=== PATIENT | male | born 1955 | race Caucasian/White ===

== ENCOUNTER 2022-11-13 19:53 | Outpatient (OUT) | payer MEDICARE, OTHER, SELFPAY | END 2022-11-13 19:54 | PROVIDERS: PCP Internal Medicine; Visit Provider Internal Medicine | DX: G47.33 Obstructive sleep apnea (adult) (pediatric) (principal) | CPT/HCPCS: 95811 ==

== ENCOUNTER 2025-04-28 11:12 | Outpatient (OUT) | payer MEDICARE, OTHER, SELFPAY ==
--- OUTSIDE RECORDS SUMMARY | 2025-04-28 06:15 | XMS_ITS | Continuity of Care Document ---
Author Organization [facility] Address [address] [place] [address] Phone Care Team Providers Care Senior Research Scientist Name Role Phone Patel Fabian DO Primary Care Provider Patel Fabian DO Attending Provider [phone] Care Teams Patient Care Team Team Status: Active Member Role/Relationship Status Dates Patel Fabian DO Primary Care Provider Active Patient Care Team Team Status: Inactive Member Role/Relationship Status Dates Patel Fabian DO Primary Care Provider Active Start: April 28, 2025 End: April 28enjaraoul Fabian DOAttending ProviderActiveStart: April 28, 2025 End: April 28, 2025 Chief Complaint and Reason for Visit Chief Complaint Admit Date Wellness April 28, 2025 1 0:16am Reason for Visit Admit Date Cough April 28, 2025 1 0:16am Hypercholesteremia April 28, 2025 1 0:16am IFG (impaired fasting glucose) April 28, 2025 10:16am Major depression April 28, 2025 1 0:16am Medicare annual wellness visit, subseque nt April 28, 2025 10:16am Screening PSA (prostate specific antigen ) April 28, 2025 10:16am Screening for colon cancer April 28, 2025 10:16am Allergies, Adverse Reactions, Alerts Allergen Type Severity Reaction Last Updated Verified Status No Known Allergies Allergy Unknown April 28, 2025 10:17amYesActive Social History Smoking Status Status Start Date End Date Date of Observa tion Ex-smoker (finding) December 07, 2022 7:22am Observation Status Observation Response Date of Response Legal Sex [facility] (finding) [facility] 1954 Family History Relationship Condition Age at Onset Recorded Date/T analia father Diabetes mellitus Unknown Disorder of kidneyUnknownHypertensionUnknownAlzheimer's diseaseUnknownmother Current smokerUnknownChronic obstructive pulmonary diseaseUnknownbrotherDiabetes mellitusUnknownsisterMalignant neoplasm of brainUnknownfatherDiabetes mellitus Unknown Problems Active Problems Problem Diagnosis/Recorded Date Onset Date Status C manasa Carpal tunnel syndrome of ri ght wrist December 07, 2022 7:38am Unknown Active Medicare annual wellness visit, subsequentApril 06, 2024 3:45pmUnknown ActiveMajor depressionApril 06, 2024 3:46pmUnknownActiveScreening PSA (prostate specific antigen)April 06, 2024 3:46pmUnknownActivePSA: 1.91 - 04/2023, 2.02 - oughDecember 2024 10:56amUnknownActive HypercholesteremiaJune 2022 8:55amUnknownActiveIFG (impaired fasting glucose)April 28, 2025 11:00amUnknownActive Medications Medication Status Dose Units Route Directions Qty Days Refills S tart Date Stop Date End Date Reason(s) Instructions Adherence Sertraline 100 mg tablet Discontinued 0 .ROUTE.BGEEOXJ6449Cmnvy 2023 3:01pmOctober 2023 6:04amTAKE 1 1/2 TABLETS BY MOUTH ONCE A DAYSertraline 100 mg tabletDiscontinued0.ROUTE.COMPLEX 1350October 2023 6:04amJanuary 2024 7:41amTAKE 1 1/2 TABLETS BY MOUTH ONCE A DAYSertraline 100 mg tabletActive0.ROUTE.AASNQLB4025Muftlnd 2024 7:41amTAKE 1 1/2 TABLETS BY MOUTH ONCE A DAYComplies with drug therapy Ibuprofen 200 mg VadamjQpbvgcihekuz944SYBIB2C as needed for PainJune 2022 11:00pmApril 09, 2024 9:46amGabapentin 300 mg kzvchzrEofmaizjfozz133TDWA Three times dailyJune 2022 11:00pmApril 09, 2024 9:46amTramadol 50 mg susrkbIxrhjywgrggy39TAQDY5V as needed for gnpn72086Tyez 2022 11:00pm April 09, 2024 9:46amCarpal tunnel syndrome of right wrist Carpal tunnel syndrome, right upper limbSertraline 100 mg ofahhjFjlblsuqzlpm724 MGPODailyApril 2023 11:00pmApril 2023 3:02pm1 1/2 Orally Once a day Doxycycline Hyclate 100 mg yczjfzmBozqnf727KLBSAavnv zruiu3279Zfkmzpmw 2024 12:00amComplies with drug therapy Immunizations Immunization Event Date Not Given Reason Dose Number Software Project Engineer Lot Number Reason(s) Given Vaccine Information Statement (VIS) Detail Administration Location COVID-19 mRNA-1273 (Moderna) July 30, 2020 COVID-19 mRNA-1273 (Moderna)August 27OVID-19 mRNA-1273 (Moderna)April 11OVID-19 mRNA Bivalent Booster (Moderna)March 24, 2022influenza, unspecified formulationOctober 2016influenza, unspecified formulation March 13, 2018influenza, unspecified formulationOctober 2018influenza, unspecified formulationOctober 2019influenza, unspecified formulation February 23, 2022influenza, unspecified formulationSeptember 2022 Pneumococcal Conjugate Vaccine, 20 valentSeptember 2021Tetanus, Diphtheria adult, 5 Lf pres free absOctober 2014 Vital Signs Vital Reading Result Reference Range Collection Date/Time Height 71 [in_i] April 28, 2025 10:72arXyfloj64.16 kgDece2024 10:21amHeart Rate64 /ohr39-432Yqhjrhcg 2nd, 2025 10:21amRespiratory rate12 /gkg33-55Ktwyfuzb 2nd, 2025 10:21amBP Akjzzjpu481 mm[Hg]100-140Decemb2024 10:21amBP Sqijevdub30 mm[Hg]60-100December 2024 10:21amBMI (Body Mass Index)29.5 kg/q3Hhcxvfik2024 10:21am Advance Directives Advance Directive Response Recorded Date/ Time Advance Directives No It[place] 5th, 201 8 2:29pm Insurance Providers Guarantor Anusha Caban JR Address [address] [facility] [address]Gtxsmrn Info.Home Phone: Payer Group Member ID Coverage Type Subscriber Relationship to Subscriber Effective Date Expiration Date MMO Retired Id: [id number] Leber , P JR Id: [id number] [facility] [address] Home Phone: [phone]-NMJA Employees [id number] Leber , P JR Id: [id number] [facility] [address] Home Phone: SelfParaFrank [facility]. [facility] Retired Id: [id number] Leber , P JR Id: [id number] [address] [facility] [address] Home Phone: Seledicare [id number] Leber , P JR Id: [id number] [facility] [address] Home Phone: [facility] [address] [place] [address] Work Phone: Id: [id number] Leber , P JR Id: [id number] [address] [facility] [address] Home Phone: SelfApril 2011 Encounters Encounter Location(s) Arrival/Admit Date Discharge/Departure Date Discharge/Departure Disposition Provider(s) Departed Physician/ Provider Office Visit -[facility] April 28, 2025 10:16am April 28, 2025 11:07am Discharged to home care or self care (routine discharge) Patel Fabian DO Recent Diagnosis Onset Date Admit Date Cough Unknown April 28 10:16am Hypercholesteremia Unknown April 28, 2025 10:16am IFG (impaired fasting glucose) Unknown D ecember 2024 10:16am Major depression Unknown April 28, 025 10:16am Medicare annual wellness visit, subsequent Unkno wn April 28, 2025 10:16am Screening PSA (prostate specific antigen) Unknow n April 28, 2025 10:16am Screening for colon cancer Unknown Decem shagufta 2024 10:16am Assessments Diagnosis Onset Date Resolution Status Admit Date Cough acuteDe2024 10:16amHypercholesteremiaacuteDece2024 10:16am IFG (impaired fasting glucose)acuteApril 28, 2025 10:16amMajor depression acuteDe2024 10:16amMedicare annual wellness visit, subsequentacute April 28, 2025 10:16amScreening PSA (prostate specific antigen)acuteApril 28, 2025 10:16amScreening for colon cancernoneactiveDece2024 10:16am Plan of Treatment Author Patel Fabian [facility], BeachwoodAuthoredFormerly [facility], [facility]2024 11:01amI have instructed this patient on the recommended lifestyle changes, which includes a low fat, high fiber diet along with a regular exercise routine. I have also reviewed the recommended age-appropriate preventive testing for this patient. I have also reviewed the recommended vaccines for their age and risk factors. Instructed on a healthy diet and exercise routine. Instructed to continue medical treatment w/o interruption. Instructed to avoid abrupt d/c of medication due to w/d symptoms. I have recommended yearly PSA testing. I have informed him that the PSA can be elevated w/ cancer, infection and enlarged prostates. I have explained to the patient, that If his PSA is elevated, while there are many causes, referral will be recommended to r/o cancer. He would be referred to Urology, who may recommend an MRI, TRUS/bx or possibly continued monitoring. He is agreeable to this plan of action PSA: 1.91 - 04/2023, 2.02 - 03/2024, 1.99 - 04/2025 This is an asymptomatic, low risk patient, who is due for a screening colonoscopy. There has been no change in appetite, weight or bowel habits. There is no history of abdominal pain, heartburn, dysphagia, melena or hematochezia. Last colonoscopy 01/01/2016 Began 4 wks ago w/o preceding URI. He denies allergy symptoms, heartburn, reflux, CP, SOB, palpitations or lightheadedness He tested negative for COVID Recently developed productive cough w/ green sputum Order CXR Rx Doxycycine and Mucinex DM His A1C is between 5.7-6.5%. Instructed on low carb, high fiber diet. Instructed on routine exercise program for 30-60min three times weekly. Instructed on correlation between obesity and insulin resistance and encouraged to lose weight. Monitor A1C every 6 months. Check A1C I have instructed this patient on a low fat, high fiber diet and exercise. I have discussed the primary and secondary prevention benefits attributed to lowering LDL cholesterol. I have also discussed the medical treatment of elevated cholesterol, which is based on the 10 year ASCVD risk. Future Tests Future scheduled test information is unavailable Pending Tests Test Name Ordered Date Scheduled Date XR chest 2V* April 28, 2025 10:55am Future Visits Future appointment information is unavailable Future Procedures Future procedure information is unavailable Future Medications Future medication information is unavailable Patient Instructions Patient instructions are unavailable
--- OUTSIDE RECORDS SUMMARY | 2025-04-28 11:19 | XMS_ITS | Clinical Summary ---
Author Organization [facility] Address [address] [place] [address] Care Team Providers Care Launch Manager Name Role Phone Patel Fabian DO Primary Care Provider [phone] Allergies No known active allergies Medications MedicationSigDispense QuantityRefillsLast FilledStart DateEnd DateStatus sertraline (Zoloft) 100 MG tablet TAKE 1 TABLET BY MOUTH EVERY DAY FOR 90 DAYS01/08/2023ctive Active Problems ProblemNoted DateDiagnosed DatePeroneal tendinitis, right leg3Pain in right ankle and joints of right foot04/02/2023asal cell carcinoma (BCC) of skin of nose11/14/2022rimary osteoarthritis of right ankle11/14/2022Sciatica 11/14/2022 Immunizations ImmunizationAdministration DatesNext DuePneumococcal Conjugate PCV Family History Medical HistoryRelationNameCommentsDiabetesBrotherDiabetesFatherCancerMother CancerOtherSpouseHeart diseasePaternal GrandfatherHeart diseasePaternal GrandmotherRelationNameStatusCommentsBrotherFatherDeceasedMotherOtherSpouse DeceasedPaternal GrandfatherDeceasedPaternal Grandmother Social History Tobacco UseTypesPacks/DayYears UsedDateSmoking Tobacco: NeverSmokeless Tobacco: Never Tobacco Cessation:Counseling Given: Not Answered Alcohol UseStandard Drinks/WeekCommentsYes6 (1 standard drink = 0.6 oz pure alcohol)caffeine: 1-2 cups per day coffeeSex and Gender InformationValueDate RecordedSex Assigned at BirthNot on fileLegal MkwRjpx06/ 6:47 PM EDT Gender IdentityNot on fileSexual OrientationNot on file Last Filed Vital Signs Vital SignReadingTime TakenCommentsBlood Gysgwtab765/8210 12:41 PM EDT Ytdfl177703/04/2024 12:41 PM EDTTemperature--Respiratory Lujl761606/02/2022 4:29 PM ESTOxygen Zrhbfgrhrq57%03/04/2024 12:41 PM EDTInhaled Oxygen Concentration-- Bmepxj96.9 kg (218 lb)03/04/2024 12:41 PM ZTOKatzbg133.8 cm (5' 10 )03/04/2024 12:41 PM EDTBody Mass Index31.281 12:41 PM EDT Plan of Treatment Not on file Insurance * Guarantor: Sony Husseincomurali TypeRelation to PatientDate of BirthPhone Billing AddressPersonal/XknxbqBpwv1955 [id number] [address] Care Teams Team MemberRelationshipSpecialtyStart DateEnd Date Patel Fabian DO PCP - GeneralInternal Medicine11/14/22
--- OUTSIDE RECORDS SUMMARY | 2025-04-28 11:19 | XMS_ITS | Clinical Summary ---
Author Organization [facility] Address [address] [place] [address] Phone Care Team Providers Care Powder Mixer Name Role Phone Patel Fabian DO Primary Care Provider [phone] Social History Tobacco UseTypesPacks/DayYears UsedDateSmoking Tobacco: Never AssessedSex and Gender InformationValueDate RecordedSex Assigned at BirthNot on fileLegal Sex Male04/22/2022 9:14 PM ESTGender IdentityNot on fileSexual OrientationNot on file Last Filed Vital Signs Vital SignReadingTime TakenCommentsBlood Ogmbnoii006/85005/31/2022 11:19 AM EST Obpia815905/31/2022 11:19 AM YMUWkfoaodpyoy76 ??C (96.8 ??F)05/31/2022 11:19 AM ESTRespiratory Rwnf211705/31/2022 11:19 AM ESTOxygen Xmtldbbpct36%05/31/2022 11:19 AM ESTInhaled Oxygen Concentration--Smkibf18.6 kg (204 lb 2.3 oz)05/31/2022 11:19 AM FFXZdfuwu573 cm (5' 9.69 )05/31/2022 11:19 AM ESTBody Mass Index29.55 05/31/2022 11:19 AM EST Plan of Treatment Health MaintenanceDue DateLast DoneCommentsCT Viinqfiixhhy1957Colonoscopy 1955Colorectal Cancer Nrkncipqv1957FIT-DNA (Cologuard)1957FIT 1955Lipid Panel1955 3844Qtoalxfvvhldz1957Yearly Adult Physical 1957MMR Vaccines (1 of 1 - Standard series)1958Diabetes Screening 1975Hepatitis C Bfyymcojl91/23/1975DTaP/Tdap/Td Vaccines (1 - Tdap) 1979PSA Prostate Cancer Fxxhshned52/23/2007Pneumococcal Vaccine (1 of 1 - PCV)2007Zoster Vaccines (1 of 2)2007Influenza Vaccine (#1)2024 COVID-19 Vaccine (1 - 2024- season)2025RSV High Risk: (Elderly (60+) or Population) (1 - 1-dose 75+ series)01/18/2032HIB VaccinesAged OutNo longer eligible based on patient's age to complete this topicHPV VaccinesAged OutNo longer eligible based on patient's age to complete this topicHepatitis A VaccinesAged OutNo longer eligible based on patient's age to complete this topic Hepatitis B VaccinesAged OutNo longer eligible based on patient's age to complete this topicIPV VaccinesAged OutNo longer eligible based on patient's age to complete this topicMeningococcal VaccineAged OutNo longer eligible based on patient's age to complete this topicRotavirus VaccinesAged OutNo longer eligible based on patient's age to complete this topic Care Teams Team MemberRelationshipSpecialtyStart DateEnd Date Patel Fabian DO PCP - General06/30/20
--- OUTSIDE RECORDS SUMMARY | 2025-04-28 11:19 | XMS_ITS | Clinical Summary ---
Author Organization [facility] Address [address] [place], [place] [address] Care Team Providers Care Electrical Maintenance Engineer Name Role Phone Patel Fabian DO Primary Care Provider [phone] Allergies No known active allergies Medications MedicationSigDispense QuantityRefillsLast FilledStart DateEnd DateStatus sertraline (ZOLOFT) 100 mg tablet Take 100 mg by mouth once daily.06/24/2023ctive ibuprofen (ADVIL) 200 mg tablet Take 200 mg by mouth every 6 hours as needed for pain.Active CPAP/BIPAP/OTHER daily at bedtime. Type .CPAPSettings into a note to see current settings/supplies/DME information.Active ondansetron (ZOFRAN) 8 mg tablet Take 1 tablet by mouth every 8 hours as needed for nausea/vomiting (take 30 minutes prior to narcotic pain medication). 20 tablet ctive tiZANidine (ZANAFLEX) 4 mg tablet Take 1 tablet by mouth every 6 hours as needed. 20 tablet 04/11/2024ctive Active Problems ProblemNoted DateDiagnosed DateOSA (obstructive sleep apnea)03/24/2024 Assessment & Plan (03/24/2024 1:56 PM EDT): Assessment: Uses CPAP Follows with Pulmonology yearly Depression with ntwiuen8603/24/2024 Assessment & Plan (03/24/2024 1:55 PM EDT): Assessment: Stable on zoloft Family History Medical HistoryRelationCommentsDifficulty with anesthesiaNo Family History Social History Tobacco UseTypesPacks/DayYears UsedDateSmoking Tobacco: SfzozdXyevmnogao897 Started: 1972Smokeless Tobacco: Never Tobacco Cessation:Counseling Given: Not Answered Alcohol UseStandard Drinks/WeekCommentsYes0 (1 standard drink = 0.6 oz pure alcohol)mcal-chbadaTRC-7SeikkxTrbt RecordedPHQ-2 woypi0735Area Deprivation IndexAnswerDate RecordedNational Score (1-100), lower number is lower newp183109/07/2023State Score (1-10), lower number is lower wzgb73709/07/2023 Data from: https://www.neighborhoodatlas.[facility]/. Last address used for [address] [address]/07/2023Sex and Gender InformationValue Date RecordedSex Assigned at BirthNot on fileLegal WebTcas7307/05/2023 5:00 PM EST Gender IdentityNot on fileSexual OrientationNot on file Last Filed Vital Signs Vital SignReadingTime TakenCommentsBlood Ofgoffsw312/7404/11/2024 11:50 AM EST Clhip701204/11/2024 11:51 AM SKWVttehekluml18.3 ??C (97.4 ??F)04/11/2024 11:02 AM ESTRespiratory Xrma844606/11/2023 11:51 AM ESTOxygen Zglbbbvwnz17%04/11/2024 11:53 AM ESTInhaled Oxygen Concentration--Skwodr75 kg (211 lb 10.3 oz)03/24/2024 1:34 PM RJCCufrdg294.3 cm (5' 11 )03/24/2024 1:34 PM EDTBody Mass Index29.52 03/24/2024 1:34 PM EDT Plan of Treatment Health MaintenanceDue DateLast DoneCommentsAbdominal Aortic Aneurysm Screening 1955Hepatitis C Fohnimaki01/23/1975Lipid Pgzdrbzot99/23/1992CT Lqewxhkfhgnt19/23/2002Cologuard (FIT-DNA)01/17/20026476Divykspryzu99/23/2002 Colorectal Cancer Xthqnwtbj08/23/2002Diabetes Uielzmppp98/23/2002Fecal Occult Blood2002Prostate Cancer Screening Sjwcpqnifc20/23/2002Sigmoidoscopy 2002Shingrix Vaccine (1 of 2)2007DTaP,Tdap,Td Vaccine (1 - Tdap) /01/2015RSV Vaccine (1 - Risk 60-74 years 1-dose series)2017 Medicare Annual Wellness Visit12/26/2021dvance Directive Ccfsayrzui07/01/2025 Covid-19 Vaccine ( season)/, 04/11/2021, 08/27/2020, Additional history existsInfluenza Vaccine (#1)509/11/2022, 02/23/2022, 03/16/2020, Additional history existsPneumococcal Vaccine: 50+ Xfiuiqdoe82/29/2022 Medical Devices ImplantedTypeAreaManufacturerDevice IdentifierSprovidence hospitalf Expiration DateModel / Serial / LotAnchor Sut Dx Fibertab - [id number] Implanted:Qty: [facility]: Bone - AnkleARTHREX [id number] / / [id number] Sut Dx Fibertab - [id number] Implanted:Qty: 1 on [facility]11/2024 [facility]: Bone - AnkleARTHREX INC04/26/[id number] / / [id number] Insurance * Guarantor: Sony Hussein TypeRelation to PatientDate of BirthPhone Billing AddressPersonal/YduunwBzpj1955 [address] [address] MemberSubscriberPlan / Payer (Effective 2021-Present)Name:Sony Hussein Relation to Subscriber:SelfName:Sony Hussein Payer ID:Not on file Type:Indemnity Address: [place] [id number] Care Teams Team MemberRelationshipSpecialtyStart DateEnd Date Patel Fabian DO [address] [place] [address] PCP - GeneralInternal Hstsfdfp23/25/24
--- OUTSIDE RECORDS SUMMARY | 2025-04-28 11:20 | XMS_ITS | Clinical Summary ---
Author Organization [facility] Address [address] [place] [address], [address] [place] [address] Care Team Providers Care Perinatal Tech Name Role Phone Patel Fabian Primary Care Provider [phone] Social History Tobacco UseTypesPacks/DayYears UsedDateSmoking Tobacco: Never AssessedSex and Gender InformationValueDate RecordedSex Assigned at BirthNot on fileLegal Sex Male07/08/2021 12:07 PM ESTGender IdentityNot on fileSexual OrientationNot on file Plan of Treatment Health MaintenanceDue DateLast DoneCommentsDepression Bgssuc4001/17/1969Hepatitis C fhyxgq8401/17/1975DTaP/Tdap/Td vaccine (1 - Tdap)01/18/19766302Bvbuqb17/23/1997 Hgnipnlhirn86/23/2002Colorectal Cancer Vxhjsm3501/17/2002FIT/FOBT: Average risk 2002Fecal-DNA (Cologuard): Average risk2002Sigmoidoscopy/CT cdrpjuovqkli48/23/2002Shingles vaccine (1 of 2)2007nnual Wellness Visit (Medicare)04/23/2023Flu vaccine (#1)509/, 02/27/2021, 04/12/2020, Additional history existsCOVID-19 Vaccine ( season) 2025Respiratory Syncytial Virus (RSV) or age 60 yrs+ (1 - 1-dose 75+ series)2Pneumococcal 0-49 years AijqvazVbkxfgndeeco55/29/2022 Pneumococcal 50+ years BlkidwsRcljnplnb24/29/2022Hepatitis A vaccineAged OutNo longer eligible based on patient's age to complete this topicHepatitis B vaccine Aged OutNo longer eligible based on patient's age to complete this topicHib vaccineAged OutNo longer eligible based on patient's age to complete this topic Meningococcal (ACWY) vaccineAged OutNo longer eligible based on patient's age to complete this topicMeningococcal B vaccineAged OutNo longer eligible based on patient's age to complete this topicPolio vaccineAged OutNo longer eligible based on patient's age to complete this topic Insurance Care Teams Team MemberRelationshipSpecialtyStart DateEnd Patel Fabian DO [address] [place] [address] PCP - GeneralInternal Medicine07/08/21
--- NOTE | 2025-04-28 11:57 | XR_ITS ---
[facility] [place] [id number] Patient Name: RAYMON HOLT MRN: [id number] date: 1955 Sex: M Assigned Patient Location: [facility] Current Patient Location: [facility] Accession/Order Number: [id number] Exam Date: 04/28/2025 11:50 Report Date: 04/28/2025 14:12 At the request of: ITALO GALLEGOS DO Procedure: XR chest 2V Chest 2 views CLINICAL HISTORY: Cough COMPARISON: CT chest 05/12/2020. FINDINGS: Heart appears normal in size. No lung consolidation pneumothorax pleural effusion or free air. XR/XR chest 2V IMPRESSION: NO ACUTE PROCESS. Impression dictated by: Freddy Miranda Jr., DAmandeepOAmandeep 04/28/2025 2:12 PM Dictation Location: [place] [address] Electronically authenticated by: [id number] Y Date: 04/28/2025 14:12
== END 2025-04-28 11:13 | disposition home or self-care (01) ==
PROVIDERS: PCP Internal Medicine; Visit Provider Internal Medicine
DX: R05.9 Cough, unspecified (principal)
CPT/HCPCS: 71046